=== PATIENT | female | born 1965 | race Caucasian/White ===

== ENCOUNTER 2020-12-05 07:03 | Day surgery (SDC) | payer BC ==
[2020-12-04 15:42] LABS: Absolute Lymphocytes (CBC) 1.8 K/uL (0.7-4.9); Basophils % 0.8 % (0-1.3); Hematocrit 35.4 % (36.0-45.0); Lymphocytes % 31.2 % (15.3-44.8); RBC Red Blood Cell Count 4.61 M/uL (3.86-4.86)
[2020-12-04 16:01] LABS: ALT/SGPT 34 U/L (12-78); AST/SGOT 43 U/L (15-37); Albumin 3.7 g/dL (3.4-5.0); Alkaline Phosphatase 61 U/L (45-117); Amylase 32 U/L (25-115); BUN Blood Urea Nitrogen 18 mg/dL (7-18); Bicarbonate 27 mmol/L (21-32); Bilirubin Direct 0.1 mg/dL (0-0.2); Bilirubin Total 0.4 mg/dL (0.2-1.0); Glucose Level 82 mg/dL (74-106); Lipase 131 U/L (73-393); Potassium 3.9 mmol/L (3.5-5.1); Protein, Total 7.1 g/dL (6.4-8.2); Sodium Level 142 mmol/L (136-145)
--- NOTE | 2020-12-05 07:56 | RAD REPORT ---
EXAM DESCRIPTION: Dian Beltran (2 Views)12/05/2020 7:17 am CLINICAL HISTORY: Preop for gallbladder surgery COMPARISON: 2017 FINDINGS: The lungs appear clear of acute infiltrate. The heart is normal size IMPRESSION: No acute abnormalities displayed
[2020-12-05] MEDS ORDERED: Ringers Lactate 1,000 ML IV ONE (08:00)
[2020-12-05] MEDS: CEFOXITIN/SWI 1gm 1 GM/10 ML SYR ONE ×2 (09:15→09:16)
[2020-12-05] MEDS ORDERED: ROCURONIUM 50 MG/5 ML VIAL IV ONE (09:19)
[2020-12-05] MEDS ORDERED: MIDAZOLAM HCL 2 MG/2 ML INJ ONE (09:19)
[2020-12-05] MEDS ORDERED: propofoL 200 MG/20 ML VIAL IV ONE (09:19)
[2020-12-05] MEDS ORDERED: FENTANYL CITR 100 MCG/2 ML ONE (09:19)
[2020-12-05] MEDS ORDERED: LIDOCAINE 1% MPF 5 ML VIAL ONE (09:19)
[2020-12-05] MEDS ORDERED: dexAMETHasone 10 MG/ML VIAL ONE (09:55)
[2020-12-05] MEDS ORDERED: ONDANSETRON 4 MG/2 ML VIAL ONE ×2 (09:59→10:38)
[2020-12-05] MEDS ORDERED: KETOROLAC 30 MG/ML INJ ONE (09:59)
--- NOTE | 2020-12-05 10:01 | P.BOP ---
Preoperative diagnosis: acute cholecystitis, symptomatic cholelithiasis Postoperative diagnosis: same Primary procedure: Laparoscopic Cholecystectomy Public Relations Consultant: CATRACHITA CHAPA (REHAB OFFICE COORDINATOR) Estimated blood loss: <10cc Specimen: gb Findings: as above Anesthesia: General Complications: None
[2020-12-05] MEDS ORDERED: GLYCOPYRROLATE 0.2 MG/ML SYR ONE (10:15)
[2020-12-05] MEDS ORDERED: NEOSTIGMINE 1 MG/ML -5 ML ONE (10:15)
[2020-12-05] MEDS: HYDROMORPHONE HCL 1 MG/ML INJ ONE ×2 (10:17→10:22)
[2020-12-05 10:27] VITALS: O2SAT 100
[2020-12-05] MEDS ORDERED: PROMETHAZINE INJ 25 MG/ML AMP ONE (10:43)
[2020-12-05 11:31] VITALS: BP 147/65; TEMP 97.1
[2020-12-05] MEDS ORDERED: HYDROCODONE/APAP 7.5/325 MG TAB ONE (11:56)
--- NOTE | 2020-12-05 12:45 | DS ---
Date of Discharge: 12/05/2020 Diagnoses: Acute cholecystitis, right upper quadrant abdominal pain, symptomatic cholelithiasis. Procedure: Laparoscopic cholecystectomy. Disposition: Home. Discharge Instructions: Activity as tolerated. No heavy lifting. Plan: Follow up in my office in 1 week. Call for appointment at [phone]. Keep area dry for 48 marco rs, then may shower. Keep Steri-Strips intact. JACQUELINE/VINNY Voice ID: [id number] Report ID: [id number]
--- NOTE | 2020-12-05 12:45 | OP ---
Date of Procedure: 12/05/2020 Surgeon: Rob Og MD Director Of Sustainable Design: Kathryn Knox. Preoperative Diagnoses: Acute cholecystitis, symptomatic cholelithiasis, right upper quadrant abdomi nal pain. Postoperative Diagnoses: Acute cholecystitis, symptomatic cholelithiasis, right upper quadrant abdom inal pain. Procedure: Laparoscopic cholecystectomy. Anesthesia: General plus local. Specimen: Gallbladder. Indication: This is the case of a female, who comes to us with above diagnosis. Fully explained the benefits, alternatives, and risks of laparoscopic possible open cholecystectomy, which include, but not limited to infection, bleeding, damage to adjacent structures, anesthesia complication, cholelith iasis, bile leak, pancreatitis, [place], and even . She also understands this may not relieve any sy mptoms. She might need more than one surgical intervention. She understood, signed a consent. Procedure In Detail: The patient was brought to the operating room and placed in supine position. A nesthesia was done without complication. Abdominal area was prepped and draped in a sterile fashion. Marcaine 0.5% was injected for local anesthetic followed by sharp incision of the skin in the infra umbilical region. The incision was carried down to fascia, which was opened under direct vision. Pe ritoneum was encountered, opened under direct vision. Vicryl #1 placed inside the fascia. Gómez tr ocar was carefully introduced. Pneumoperitoneum was obtained. I placed 3 more trocars, 5 mm each on e of them, 1 in the epigastric area and 2 in the right upper quadrant using same technique which was consisted of local anesthetic, sharp incision of the skin and introduction of the trocars under direc t vision. Some adhesions to the gallbladder and adhesions in the right upper quadrant were taken car e off with the help of Endo Noe since the patient has history of gastric stapling. After that, we put a grasper in the fundus of the gallbladder and another grasper in the infundibulum, retracted th e gallbladder in the inferolateral fashion, exposing the triangle of Calot and obtaining critical vie w. Cystic duct and cystic artery were clearly isolated, freed circumferentially and a connection bet ween those and the gallbladder was identified. I proceeded to ligate those by using at least 3 clips proximal, 1 clip distal, ligation in middle. Same was done with the cystic artery. No bile leak, n o bleeding. The gallbladder was removed from liver using the Bovie cauterizer and removed from abdom inal cavity using an EndoCatch through the umbilical incision. The area was inspected once again. N o bile leak, no bleeding. At that moment, I proceeded to remove the trocars under direct vision. De flated pneumoperitoneum, closed the fascia with #1 Vicryl. Irrigated the subcutaneous tissue, closed with 3-0 chromic and skin in a subcuticular fashion with 3-0 chromic and Steri-Strips on top. Spong e count and instrument counts correct. The patient tolerated the procedure well. The patient was se nt to recovery in stable condition. JACQUELINE/VINNY Voice ID: [id number] Report ID: [id number]
--- NOTE | 2020-12-06 07:24 | EKG ---
Test Date: 2020-12-04 Test Time: 14:04:45 Psychiatric Therapist: DEBI MEASUREMENT RESULTS: Intervals: Rate: 60 CA: 166 QRSD: 90 QT: 452 QTc: 452 [place]: P: 68 CA: 166 QRS: -26 T: 52 INTERPRETIVE STATEMENTS: Normal sinus rhythm Normal ECG No previous ECG available for comparison Electronically Signed On 12-06-20 07:18:43 CDT by Nirav Parmar
== END 2020-12-05 12:20 | disposition home or self-care (01) ==
LOC: PRE 07:03
PROVIDERS: ATTEND Surgery
PROC: 0FT44ZZ Resection of Gallbladder, Percutaneous Endoscopic Approach (ICD-10-PCS; principal; 2020-12-05 08:30)
DX: K80.10 Calculus of gallbladder with chronic cholecystitis without obstruction (principal); Z20.822 Contact with and (suspected) exposure to COVID-19
CPT/HCPCS: 93005; 85025; 80048; 36415; 82150; 84703; 80076; 88304; 83690; 71046; 47562; U0003; J2704; J2550; J2250; J3010; J1100; J1170; J2710; J7120; J2405